=== PATIENT | male | born 1960 | race Caucasian/White ===

== ENCOUNTER 2021-09-13 13:23 | Emergency (ER) | payer BC, OTHER ==
[2021-09-13 15:22] LABS: Absolute Lymphocytes (CBC) 1.4 K/uL (0.7-4.9); Basophils % 0.4 % (0-1.3); Hematocrit 38.2 % (39.6-49.0); MPV 8.8 fL (7.6-11.3); RBC Red Blood Cell Count 4.69 M/uL (4.33-5.43)
[2021-09-13] MEDS ORDERED: NA CHLORIDE 0.9% 500 ML ONE (15:35)
[2021-09-13 15:44] LABS: ALT/SGPT 30 U/L (12-78); AST/SGOT 29 U/L (15-37); Albumin 4.2 g/dL (3.4-5.0); Alkaline Phosphatase 100 U/L (45-117); BUN Blood Urea Nitrogen 38 mg/dL (7-18); Bicarbonate 30 mmol/L (21-32); Bilirubin Direct < 0.1 mg/dL (0-0.2); Bilirubin Total 0.3 mg/dL (0.2-1.0); Creatine Phosphokinase 459 U/L (39-308); Glucose Level 188 mg/dL (74-106); Lipase 224 U/L (73-393); Protein, Total 7.5 g/dL (6.4-8.2); Sodium Level 136 mmol/L (136-145)
--- NOTE | 2021-09-13 16:32 | RAD REPORT ---
EXAM DESCRIPTION: CT - Stone Protocol - 09/13/2021 4:14 pm CLINICAL HISTORY: elevated creatinine COMPARISON: No comparisons TECHNIQUE: Axial 3 mm thick images were obtained without oral or IV contrast. The [id number] span s the entirety of the system including uppermost abdomen and lung bases. All CT scans are performed using dose optimization technique as appropriate and may include automated exposure control or mA/KV adjustment according to patient size. FINDINGS: No hydronephrosis is present and no obstructing ureteral calculi. No suspicious renal mass es. Isodense masses and pyelonephritis are not excluded on a stone protocol CT scan. No significant a drenal finding. Urinary bladder is contracted limiting assessment. No bladder calculi seen. Prostate gland and seminal vesicles within range of normal. Imaged portions of the liver, spleen and pancreas show no suspicious findings on non-contrast imaging . Gallbladder is contracted. No biliary tree dilatation. No suspicious bowel findings. Appendix is normal. A few small sub centimeter mesenteric lymph nodes a re present. Diverticulosis is mild. No mass or bulky lymphadenopathy. Bilateral fat filled inguinal hernias are present. No free air, martin e fluid or inflammatory stranding. No significant bony abnormality. IMPRESSION: No hydronephrosis, obstructing calculus or acute finding identifiable. Isodense masses and pyelonephritis are not excluded on stone protocol technique.
[2021-09-13 16:41] LABS: Urine Blood Negative (Negative); Urine Glucose 2+ (Negative); Urine Protein Negative (Negative); Urine Specific Gravity 1.015 (1.005-1.030); Urine pH 8.5 (5.0-7.0)
--- NOTE | 2021-09-13 17:33 | EDPHYS ---
Physician Documentation [facility] Name: Kwasi Sullivan Age: 61 yrs Sex: Male : 1960 Arrival Date: 09/13/2021 Time: 13:25 Bed 24 Private MD: Jose Angel Shaffer ED Physician Nikolay Tinoco HPI: 09/13 13:35 This 61 yrs old Male presents to ER via Ambulatory with complaints of jmm Abnormal Lab Results - kft. 13:35 Onset: The symptoms/episode began/occurred at an unknown time. This is a 61-year-old jmm male with history of hypertension that presents emerged department with concerns of kidney failure. Patient states that his PCP ordered outpatient labs with his creatinine elevated as well as is blood glucose level. Advised for the patient to go to the ED for further evaluation. Patient denies abdominal pain, shortness of breath, dysuria, fever. Denies vomiting or diarrhea. Patient states he is still quite active and works out approximately 3 times a week. Historical: - Allergies: 13:28 No Known Allergies; lp1 - Home Meds: 13:28 amlodipine 10 mg tab 1 tab once daily [Active]; Flomax 0.4 mg Oral cap 1 cap once daily lp1 [Active]; - PMHx: 13:28 Hypertensive disorder; lp1 - Immunization history:: Adult Immunizations up to date, Client reports receiving the 2nd dose of the Covid vaccine, Moderna. - Social history:: Smoking status: Patient reports use of chewing tobacco. ROS: 13:35 Constitutional: Negative for fever, chills, and weight loss, Cardiovascular: Negative jmm for chest pain, palpitations, and edema, Respiratory: Negative for shortness of breath, cough, wheezing, and pleuritic chest pain. 13:35 All other systems are negative. Exam: 13:35 Constitutional: This is a well developed, well nourished patient who is awake, alert, jmm and in no acute distress. Head/Face: atraumatic. Eyes: EOMI, no conjunctival erythema appreciated ENT: Moist Mucus Membranes Neck: Trachea midline, Supple Chest/axilla: Normal chest wall appearance and motion. Cardiovascular: Regular rate and rhythm. No edema appreciated Respiratory: Normal respirations, no respiratory distress appreciated Abdomen/GI: Non distended, soft Back: Normal ROM Skin: General appearance color normal MS/ Extremity: Moves all extremities, no obvious deformities appreciated, no edema noted to the lower extremities Neuro: Awake and alert, normal gait Psych: Behavior is normal, Mood is normal, Patient is cooperative and pleasant Vital Signs: 13:29 BP 158 / 75; Pulse 94; Resp 18; Pulse Ox 99% on R/A; Weight 107.95 kg (R); Height 6 ft. lp1 0 in. (182.88 cm); Pain 0/10; 15:41 Pulse 78; Resp 18; Pulse Ox 100% on R/A; aj1 13:29 Body Mass Index 32.28 (107.95 kg, 182.88 cm) lp1 MDM: 13:35 Patient medically screened. reymundo 17:30 Data reviewed: vital signs, nurses notes. Counseling: I had a detailed discussion with irving the patient and/or guardian regarding: the historical points, exam findings, and any diagnostic results supporting the discharge/admit diagnosis, lab results, radiology results, the need for outpatient follow up, to return to the emergency department if symptoms worsen or persist or if there are any questions or concerns that arise at home. 09/13 13:53 Order name: Basic Metabolic Panel; Complete Time: 15:44 [facility] 09/13 13:53 Order name: CBC with Diff; Complete Time: 15:29 [facility] 09/13 13:53 Order name: Hepatic Function; Complete Time: 15:44 [facility] 09/13 13:53 Order name: Lipase; Complete Time: 15:44 [facility] 09/13 13:54 Order name: CPK; Complete Time: 15:44 [facility] 09/13 16:41 Order name: Urine Dipstick-Ancillary; Complete Time: 17:05 [facility] 09/13 13:53 Order name: IV Saline Lock; Complete Time: 15:07 [facility] 09/13 13:53 Order name: Labs collected and sent; Complete Time: 15:07 [facility] 09/13 13:54 Order name: Urine Dipstick-Ancillary (obtain specimen); Complete Time: 16:58 [facility] 09/13 15:45 Order name: CT Stone Protocol; Complete Time: 16:33 [facility] 09/13 15:45 Order name: Urine Dipstick-Ancillary (obtain specimen); Complete Time: 16:57 [facility] Administered Medications: 15:12 Drug: NS 0.9% 500 ml Route: IV; Rate: bolus; Site: right forearm; aj1 17:55 Follow up: IV Status: Completed infusion; IV Intake: 500ml aj Disposition: 09/14 16:20 Co-signature as Attending Physician, Nikolay Tinoco MD I agree with the assessment and reymundo plan of care. Disposition Summary: 09/13/21 17:32 Discharge Ordered Location: Home [facility] Condition: Stable jm Diagnosis - Renal insufficiency [facility] Followup: jmm - With: Otoniel Escobedo DO - When: 2 - 3 days - Reason: Recheck today's complaints, Continuance of care, Re-evaluation by your physician Followup: [facility] - With: Ammy Marcelino MD - When: 2 - 3 days - Reason: Recheck today's complaints, Continuance of care, Re-evaluation by your physician Discharge Instructions: - Discharge Summary Sheet jmm - Food Basics for Chronic Kidney Disease jmm - Chronic Kidney Disease, Adult jm Forms: - Medication Reconciliation Form [facility] - Thank You Letter jm - Antibiotic Education jm - Prescription Opioid Use [facility] Signatures: Dispatcher [employer] EDKimber Posey, RN RN aj1 Nikolay Tinoco MD MD cha Mickail, Joel, PA PA jmm Pena, Laura, RN RN lp1
--- NOTE | 2021-09-13 17:33 | ER ---
Nurse's Notes [facility] Name: Kwasi Sullivan Age: 61 yrs Sex: Male : 1960 Arrival Date: 09/13/2021 Time: 13:25 Bed 24 Private MD: Jose Angel Shaffer Diagnosis: Renal insufficiency Presentation: 09/13 13:26 Chief complaint: Patient states: Reports labs were done in Dr. Garvey's office lp1 yesterday and told to come to ER due to abnormal kidney function and high glucose. Coronavirus screen: At this time, the client does not indicate any symptoms associated with coronavirus-19. Ebola Screen: No symptoms or risks identified at this time. Risk Assessment: Do you want to hurt yourself or someone else? Patient reports no desire to harm self or others. Onset of symptoms was September 13, 2021. 13:26 Method Of Arrival: Ambulatory lp1 13:26 Acuity: LILIAN 3 lp1 13:29 Initial Sepsis Screen: Does the patient meet any 2 criteria? No. Patient's initial lp1 sepsis screen is negative. Does the patient have a suspected source of infection? No. Patient's initial sepsis screen is negative. Historical: - Allergies: 13:28 No Known Allergies; lp1 - Home Meds: 13:28 amlodipine 10 mg tab 1 tab once daily [Active]; Flomax 0.4 mg Oral cap 1 cap once daily lp1 [Active]; - PMHx: 13:28 Hypertensive disorder; lp1 - Immunization history:: Adult Immunizations up to date, Client reports receiving the 2nd dose of the Covid vaccine, Moderna. - Social history:: Smoking status: Patient reports use of chewing tobacco. Screenin:28 Abuse screen: Denies threats or abuse. Denies injuries from another. Nutritional aj1 screening: No deficits noted. Tuberculosis screening: No symptoms or risk factors identified. 17:54 Fall Risk None identified. aj1 Assessment: 14:28 General: Appears in no apparent distress. comfortable, Behavior is calm, cooperative, aj1 appropriate for age. Pain: Denies pain. Neuro: Level of Consciousness is awake, alert, obeys commands, Oriented to person, place, time, situation. Cardiovascular: Patient's skin is warm and dry. Respiratory: Airway is patent Respiratory effort is even, unlabored, Respiratory pattern is regular, symmetrical. GI: No signs and/or symptoms were reported involving the gastrointestinal system. : No signs and/or symptoms were reported regarding the genitourinary system. EENT: No signs and/or symptoms were reported regarding the EENT system. Derm: No signs and/or symptoms reported regarding the dermatologic system. Skin is pink, warm \T\ dry. normal. Musculoskeletal: No signs and/or symptoms reported regarding the musculoskeletal system. Circulation, motion, and sensation intact. 15:40 Reassessment: Patient appears in no apparent distress at this time. No changes from aj1 previously documented assessment. Patient and/or family updated on plan of care and expected duration. Pain level reassessed. Patient is alert, oriented x 3, equal unlabored respirations, skin warm/dry/pink. 16:56 Reassessment: Patient and/or family updated on plan of care and expected duration. Pain aj1 level reassessed. General: Appears in no apparent distress. comfortable, Behavior is calm, cooperative, appropriate for age. Neuro: Level of Consciousness is awake, alert, obeys commands, Oriented to person, place, time, situation. Cardiovascular: Patient's skin is warm and dry. Respiratory: Airway is patent Respiratory effort is even, unlabored, Respiratory pattern is regular, symmetrical. Derm: Skin is pink, warm \T\ dry. normal. Musculoskeletal: Circulation, motion, and sensation intact. 17:54 Reassessment: Patient appears in no apparent distress at this time. No changes from aj1 previously documented assessment. Patient and/or family updated on plan of care and expected duration. Pain level reassessed. Patient is alert, oriented x 3, equal unlabored respirations, skin warm/dry/pink. Vital Signs: 13:29 BP 158 / 75; Pulse 94; Resp 18; Pulse Ox 99% on R/A; Weight 107.95 kg (R); Height 6 ft. lp1 0 in. (182.88 cm); Pain 0/10; 15:41 Pulse 78; Resp 18; Pulse Ox 100% on R/A; aj1 13:29 Body Mass Index 32.28 (107.95 kg, 182.88 cm) lp1 ED Course: 13:25 Patient arrived in ED. as 13:26 Jose Angel Shaffer MD is Private Physician. as 13:28 Triage completed. lp1 13:29 Arm band placed on. lp1 13:35 Dagoberto Ott PA is PHCP. jm 13:35 Nikolay Tinoco MD is Attending Physician. [facility] 14:18 Kimber Holder, RN is Primary Nurse. aj1 14:28 Patient has correct armband on for positive identification. Bed in low position. Call aj1 light in reach. 14:28 No provider procedures requiring assistance completed. aj1 15:00 Inserted saline lock: 20 gauge in right forearm, using aseptic technique. Blood aj1 collected. 16:14 CT Stone Protocol In Process Unspecified. EDMS 17:31 Otoniel Escobedo DO is Referral Physician. jmm 17:32 Ammy Marcelino MD is Referral Physician. [facility] 17:54 IV discontinued, intact, bleeding controlled, No redness/swelling at site. Pressure aj1 dressing applied. Administered Medications: 15:12 Drug: NS 0.9% 500 ml Route: IV; Rate: bolus; Site: right forearm; aj1 17:55 Follow up: IV Status: Completed infusion; IV Intake: 500ml aj1 Intake: 17:55 IV: 500ml; Total: 500ml. aj1 Outcome: 17:32 Discharge ordered by . [facility] 17:54 Discharged to home ambulatory. aj1 17:54 Condition: good 17:54 Discharge instructions given to patient, Instructed on discharge instructions, follow up and referral plans. Demonstrated understanding of instructions, follow-up care. 17:55 Patient left the ED. aj1 Signatures: Dispatcher [employer] EDMS Kimber Holder, RN RN aj1 Dagoberto Ott PA PA jmm Martinez, Amelia as Pena, Laura, RN RN lp1
[2021-09-13 18:01] VITALS: BP 158/75
[2021-09-13 18:02] VITALS: O2SAT 100
== END 2021-09-13 17:55 | disposition home or self-care (01) ==
LOC: ER 13:23
DX: N28.9 Disorder of kidney and ureter, unspecified (principal); I10 Essential (primary) hypertension; F17.220 Nicotine dependence, chewing tobacco, uncomplicated
CPT/HCPCS: 96361; 85025; 80048; 36415; 82550; 80076; 81003; 83690; 76377; 74176; 96360; 99284; J7040